=== PATIENT | female | born 1945 | race Caucasian/White ===

== ENCOUNTER 2017-04-01 05:29 | Inpatient (IN) | payer OTHER ==
[2017-03-15 13:22] VITALS: BMI 29.0
--- NOTE | 2017-03-15 14:22 | PAT Medication Instructions ---
Service Date Mar 15, 2017. Current Home Medication List Albuterol Sulf (Ventolin), 2 PUFF PO DAILY PRN for shortness of breath Aspirin (Aspirin Ec), 81 MG PO QAM Biotin (Biotin), 1 TAB PO BID Carvedilol (Coreg), 3.125 MG PO BID Cetirizine (Zyrtec), 10 MG PO QPM Cholecalciferol (Vitamin D3), 1 TAB PO QAM Coenzyme Q10 (Ubidecarenone) (Co Q10), 2 CAP PO QAM Fish Oil ([place]-3), 1 CAP PO QAM Fluticasone Prop/Salmeterol (Advair Diskus 100/50 60 Dose), 2 PUFF INH BID Hydrochlorothiazide (Hctz), 12.5 MG PO QAM Ibuprofen Tab (Advil), 200 MG PO DAILY PRN for headache Losartan Potassium (Cozaar), 25 MG PO QAM Magnesium Oxide (Mag-Ox), 400 MG PO QPM Sennosides-Docusate Sodium (Stool Softener), 1 TAB PO BID Trazodone Hcl (Trazodone), 50 MG PO QPM [probiotic advantage], 1 TAB PO QAM Medication Instructions For Your Scheduled Surgery - Hold the following medications 2 weeks prior to surgery: Coenzyme Q10 (Ubidecarenone) (Co Q10), 2 CAP PO QAM Fish Oil ([place]-3), 1 CAP PO QAM Biotin (Biotin), 1 TAB PO BID - Hold the following medications the morning of surgery: Losartan Potassium (Cozaar), 25 MG PO QAM Hydrochlorothiazide (Hctz), 12.5 MG PO QAM Cholecalciferol (Vitamin D3), 1 TAB PO QAM [probiotic advantage], 1 TAB PO QAM Ibuprofen Tab (Advil), 200 MG PO DAILY PRN for headache (otherwise okay to continue per surgeon) Sennosides-Docusate Sodium (Stool Softener), 1 TAB PO BID - Take the following medications the morning of surgery with a sip of water OTHERWISE NOTHING TO EAT OR DRINK AFTER MIDNIGHT: Aspirin (Aspirin Ec), 81 MG PO QAM (okay to continue per surgeon) Albuterol Sulf (Ventolin), 2 PUFF PO DAILY PRN for shortness of breath (use if needed; BRING TO HOSPITAL) Carvedilol (Coreg), 3.125 MG PO BID Fluticasone Prop/Salmeterol (Advair Diskus 100/50 60 Dose), 2 PUFF INH BID - Take the following medications as scheduled the night before surgery: Albuterol Sulf (Ventolin), 2 PUFF PO DAILY PRN for shortness of breath Ibuprofen Tab (Advil), 200 MG PO DAILY PRN for headache Trazodone Hcl (Trazodone), 50 MG PO QPM Magnesium Oxide (Mag-Ox), 400 MG PO QPM Cetirizine (Zyrtec), 10 MG PO QPM Sennosides-Docusate Sodium (Stool Softener), 1 TAB PO BID Carvedilol (Coreg), 3.125 MG PO BID Fluticasone Prop/Salmeterol (Advair Diskus 100/50 60 Dose), 2 PUFF INH BID If you have any questions please call us at [phone] or [phone] or [phone]
[2017-03-15 15:09] LABS: URINE APPEARANCE CLEAR (CLEAR); URINE BILIRUBIN NEG (NEG); URINE COLOR YELLOW; URINE NITRITE NEG (NEG); URINE SPECIFIC GRAVITY 1.016 (1.000-1.030); UROBILINOGEN NEG (NEG)
[2017-03-15 15:10] LABS: MANUAL MICROSCOPIC REQUIRED? NO; REVIEW REQ? NO
[2017-03-15 15:29] LABS: BUN/CREATININE RATIO 20.3 (10-20); CALCIUM 8.8 mg/dl (8.5-10.1); CREATININE 1.3 mg/dl (0.60-1.20); POTASSIUM 4.1 mmol/L (3.5-5.1)
[2017-03-15 16:55] LABS: BASO % 0.6 %; BASO ABS # 0.05 K/uL (0-0.2); COMPLETE YES; EOS % 4.9 %; HEMATOCRIT 41.4 % (37-47); IG% 0.1 %; LYMPH % 27.9 %; LYMPH ABS # 2.16 K/uL (1.2-3.4); MEAN CELL VOLUME 92.4 fL (80-100); MEAN CORPUSCULAR HEMOGLOBIN 30.1 pg (25-34); MEAN CORPUSCULAR HGB CONC 32.6 g/dl (32-36); MEAN PLATELET VOLUME 9.8 fL (7.4-10.4); MONO % 8.9 %; NEUT % 57.6 %; PLATELET COUNT 294 K/uL (130-400); RED BLOOD COUNT 4.48 M/uL (4.2-5.4); WHITE BLOOD COUNT 7.75 K/uL (4.8-10.8)
[2017-04-01] VITALS (11 sets, daily range): BP systolic 111–168; BP diastolic 52–89; PULSE 52–70; TEMP 34.6–36.9; O2SAT 59–99; Ht 167.6 cm; Wt 81.4 kg
[~2017-04-01] VITALS: Ht 167.6 cm; Wt 81.4 kg
[~2017-04-01 05:29] MED LIST: ADVIN10/60 INH; ALBU2SYP9 PO; ASPI81TA28 PO; BIOT1CAP3 PO; CARV3.122 PO; CETI10TA84 PO; CHOL1000 PO; COEN1CAP28 PO; HYDR12.56 PO; IBUP-103 PO; LOSA1TAB PO; MAGN400T6 PO; OMEG10007 PO; PROBIOTIC ADVANTAGE PO; SENNTAB23 PO; TRAZ50TA35 PO
[2017-04-01] MEDS ORDERED: PREGABALIN 75 MG CAP PO SCH (06:00)
[2017-04-01] MEDS ORDERED: LACTATED RINGER'S 1000ML 1,000 ML IV SCH (06:00)
[2017-04-01] MEDS ORDERED: CEFAZOLIN 2000 MG/60 ML D5W IV SCH (06:00)
[2017-04-01] MEDS ORDERED: MIDAZOLAM HCL 1 MG/ML 2ML VIAL ONE (06:37)
[2017-04-01] MEDS ORDERED: FENTANYL CITRATE INJ 50 MCG/1 ML 2 ML VIAL ONE ×2 (06:37→07:56)
[2017-04-01] MEDS ORDERED: THROMBIN FOR SOLN 20000 UNIT KIT ONE ×2 (06:52→07:00)
[2017-04-01] MEDS ORDERED: THROMBIN 5000 UNITS KIT ONE ×2 (06:52→07:00)
[2017-04-01] MEDS ORDERED: HEPARIN SOD (PORCINE) 1000 UNIT/ML 10 ML VIAL ONE ×2 (06:53→07:51)
[2017-04-01] MEDS ORDERED: BUPIVACAINE/EPINEPHRINE 0.25% 1:200,000 30 ML VIAL ONE (06:53)
[2017-04-01] MEDS ORDERED: BACITRACIN 50000 UNIT VIAL ONE (06:53)
--- NOTE | 2017-04-01 07:24 | History & Physical Bridge Note ---
H&P Re-Evaluation Bridge Note: I have examined the patient, reviewed the History & Physical and in the interval since the performance of the History & Physical I have noted the following changes of clinical significance: medically cleared at moderate risk. No changes noted
[2017-04-01] MEDS ORDERED: HYDROmorphone INJ 2 MG/ML SYR/VIAL ONE ×2 (07:56→09:37)
[2017-04-01] MEDS ORDERED: ATROPINE SULFATE 0.1 MG/ML 5ML SYR IV PRN (08:15)
[2017-04-01] MEDS ORDERED: ONDANSETRON INJ 2 MG/ML 2 ML VIAL IV PRN ×2 (08:15→09:45)
[2017-04-01] MEDS ORDERED: LABETALOL HCL IV 5 MG/ML 20ML IV PRN (08:15)
[2017-04-01] MEDS ORDERED: HydrALAZINE HCL 20 MG/ML VIAL ONE (09:21)
[2017-04-01] MEDS ORDERED: EpHEDrine SULFATE 50MG/5ML SYR ONE (09:21)
[2017-04-01] MEDS ORDERED: NEOSTIGMINE METHYLSULFATE 1 MG/ML 10ML VIAL ONE (09:21)
[2017-04-01] MEDS ORDERED: PROPOFOL IV EMULSION 10 MG/ML 20 ML VIAL IV ONE (09:21)
[2017-04-01] MEDS ORDERED: DEXAMETHASONE SOD INJ 4 MG/ML VIAL ONE (09:21)
[2017-04-01] MEDS ORDERED: GLYCOPYRROLATE INJ 0.2 MG/ML VIAL ONE (09:21)
[2017-04-01] MEDS ORDERED: ROCURONIUM BROMIDE 10 MG/ML 5 ML VIAL ONE (09:21)
[2017-04-01] MEDS ORDERED: ONDANSETRON INJ 2 MG/ML 2 ML VIAL ONE (09:21)
[2017-04-01] MEDS ORDERED: LIDOCAINE HCL 2% 2 ML VIAL (20MG/ML) ONE (09:21)
[2017-04-01] MEDS: SODIUM CHLORIDE 0.9% 1000ML 1,000 ML IV SCH ×3 (09:31→12:06)
[2017-04-01] MEDS ORDERED: FLOSEAL HEMOSTATIC MATRIX 10ML TOP ONE (09:37)
--- NOTE | 2017-04-01 09:37 | [facility] Post Operative Brief Note ---
Immediate Operative Summary Operative Date Apr 01, 2017. Pre-Operative Diagnosis Lumbar Stenosis Post-Operative Diagnosis Lumbar Stenosis Procedure(s) Performed L2-L4 Decompression Fusion; Use of Arteriorcyte; Application of Bone Morphogenic Protein Surgeon Dr. Lobato Stained Glass Artist Surgeon(s) Bernard Mirza PA-C Estimated Blood Loss 150 ml Findings dict Specimens NONE PER SURGEON
[2017-04-01] MEDS ORDERED: HYDROmorphone HCL 0.5MG/ML 50 ML CASSETTE ONE (09:43)
--- NOTE | 2017-04-01 09:44 | [facility] Operative Report ---
Operative Report Operative Date Apr 01, 2017. Pre-Operative Diagnosis Lumbar Stenosis Post-Operative Diagnosis Lumbar Stenosis Procedure(s) Performed 1. L2 and L3 laminectomies 2. L2-4 PSF 3. exploration fusion mass L4-5 bilateral 4. Pedicle screw instrumentaion bilateral L2 and soni application L2-4 bilateral with K2M pedicle screws bilateral 5. Left Iliac crest bone marrow aspiration Surgeon Dr. Lobato Firer Electric Locomotive Surgeon(s) Bernard Mirza PA-C Estimated Blood Loss 150 ml Findings see bwelow Specimens NONE PER SURGEON Anesthesia GETA Complication(s) None Description of Procedure After identification of the patient and the operative level they were brought to the OR where they underwent induction of general anesthesia. They were positioned prone on a Won spine table with all bony prominence well-padded. Care was taken to avoid pressure on the periorbital area. The lumbosacral area was sterilely prepped and draped in the usual fashion. Antibiotics were administered, a time-out was performed, level was confirmed, and skin incision was with localized lateral fluoroscopy and a spinal needle. The skin was infiltrated with half percent Marcaine with epinephrine. I then made skin incision from the spinous process of L2-5. The dorsal fascia was incised and posterior exposure was accomplished with dissection out to the tips of the transverse processes from L2-4 bilaterally. I then packed the gutters with thrombin-soaked sponges and used fluoroscopy to confirm the operative levels with markers at the operative levels. After identification of the appropriate level I placed Gelpi retractors and proceeded to perform midline decompression. Laminectomies of L2&3 were performed in the midline with takedown of the intervening ligamentum flavum. I then used an osteotome to remove the medial facets at L2-3 and L3-4. Facet hypertrophy and degenerative changes were noted at the operative levels. I then completed decompression with Kerrison rongeurs and palpated the nerve roots were adequately decompressed at the operative levels from L2-4 bilaterally. I palpated all nerve roots were decompressed adequately. I then obtained hemostasis of epidural bleeding with bipolar cautery and Surgiflo. I then proceeded to place pedicle screws bilaterally at L2 &3 with bony anatomy confirmed to be intact with the ball-tipped feeler. I confirmed screw length, trajectory, and position with fluoroscopy. Following this I turned my attention to the L3-4 disc space which was severely collapsed and precluded cage placement however the spondylolisthesis reduced on the table. Bone graft consisted of morselized local bone from laminectomy bone as well as bone graft early years teacher saturated with stem cell concentrate. I obtained stem cell concentrate using a stem cell concentration system after aspiration of bone marrow from the left iliac crest via a separate stab incisions with a Jamshidi needle. I then applied this to bone graft early years teacher. I then lowered the Adrian frame to restore lordosis. I explored the fusion and hardware bilaterally at L4-5 and confirmed a solid fusion. I then applied connectors between the screws at L4-5 and applied rods and end caps bilaterally with final tightening of all caps. To facilitate soni introduction I had to remove the L3 screws. I applied two cross links. I irrigated with bacitracin solution. I then decorticated the transverse processes bilaterally at the operative levels from L2-4 as well as facet joints with a high-speed bur. I then packed the lateral gutters and facets with the bone graft mixture consisting of: infuse BMP and a collagen sponge, tricalcium phosphate logs, stem cell concentrate, morcellized local bone, and bone graft early years teacher. I then confirmed hemostasis and closed in a layered fashion over a MISTY drain. All sponge and needle counts were correct in the case. My PA-C was critical for performance of procedure and participated in draping, prepping, retraction, and wound closure. I attest to the content of the Intraoperative Record and any orders documented therein. Any exceptions are noted below.
[2017-04-01] MEDS ORDERED: LORAZEPAM 0.5 MG TAB PO PRN (09:45)
[2017-04-01] MEDS ORDERED: ACETAMINOPHEN 500 MG TAB PO PRN (09:45)
[2017-04-01] MEDS ORDERED: PROMETHAZINE HCL INJ 12.5 MG in SODIUM CHLORIDE 0.9% 50ML 50 ML IV PRN (09:45)
[2017-04-01] MEDS ORDERED: ALUMINUM/MAGNESIUM SUSP 30 ML UDC PO PRN (09:45)
[2017-04-01] MEDS ORDERED: LORAZEPAM INJ 0.5 MG in SYRINGE 0 ML IV PRN (09:45)
[2017-04-01] MEDS ORDERED: BISACODYL 10 MG SUPP PR PRN (09:45)
[2017-04-01] MEDS ORDERED: ACETAMINOPHEN IV 100 ML IV PRN (09:45)
[2017-04-01] MEDS ORDERED: SOD PHOSPHATE/SOD BIPHOSPHATE ENEMA 132 ML BTL PR PRN (09:45)
[2017-04-01] MEDS ORDERED: NALOXONE HCL 0.4 MG/1 ML VIAL/CARP IV PRN ×2 (09:45)
[2017-04-01] MEDS ORDERED: hydrOXYzine HCL 25 MG TAB PO PRN (09:45)
[2017-04-01] MEDS ORDERED: DC PCA PRN (09:45)
[2017-04-01] MEDS ORDERED: FAMOTIDINE 20 MG TAB PO PRN (09:45)
[2017-04-01] MEDS ORDERED: METOCLOPRAMIDE HCL INJ 5 MG/ML 2 ML VIAL IV PRN (09:45)
[2017-04-01] MEDS ORDERED: MAGNESIUM HYDROXIDE SUSP 30 ML UDC PO PRN (09:45)
[2017-04-01] MEDS: HYDROmorphone INJ 2 MG/ML SYR/VIAL IV PRN ×4 (09:47→10:02)
--- NOTE | 2017-04-01 10:33 | Anesthesiology Progress Note ---
Anesthesia Post Op Note Date & Time Apr 01, 2017 at 10:33 Vital Signs Vital Signs Past 12 Hours Date Time Temp Pulse Resp B/P (MAP) Pulse Ox O2 Delivery O2 Flow Rate FiO2 04/01/17 10:30 66 16 144/65 93 Nasal Cannula 4 04/01/17 10:20 44 16 123/52 97 Nasal Cannula 4 04/01/17 10:10 47 16 122/56 98 Nasal Cannula 4 04/01/17 10:00 41 16 118/50 97 Oxymask 8 04/01/17 09:50 54 16 145/66 98 Oxymask 8 04/01/17 09:40 36.1 66 16 153/69 98 Oxymask 8 04/01/17 06:39 36.9 59 20 168/89 98 Room Air 04/01/17 05:58 36.9 59 20 168/89 (115) 59 Room Air Notes Mental Status: alert / awake / arousable, participated in evaluation Pt Amnestic to Procedure: Yes Nausea / Vomiting: adequately controlled Pain: adequately controlled Airway Patency, RR, SpO2: stable & adequate BP & HR: stable & adequate Hydration State: stable & adequate Anesthetic Complications: no major complications apparent
[2017-04-01] MEDS ORDERED: GLYCOPYRROLATE INJ 0.2 MG/ML VIAL IV ONE (10:45)
--- NOTE | 2017-04-01 11:45 | DIAGNOSTIC IMAGING REPORT ---
Lumbar spine LUMBAR SPINE 2 OR 3 VIEW CLINICAL HISTORY: L4-L5 REMOVAL / L2-L4 DECOMP/FUSION TECHNIQUE: Image intensifier COMPARISON STUDY: None FINDINGS: Image intensifier utilized for lumbar spine fusion/ReVision procedure IMPRESSION: Image intensifier utilized for lumbar spine fusion/ReVision procedure Electronically signed by: Pito Corbin M.D. 04/01/2017 11:44 AM Dictated Date/Time: 04/01/2017 11:43 AM
[2017-04-01] MEDS ORDERED: ALBUAER INH (12:13)
[2017-04-01] MEDS ORDERED: ALBUTEROL HFA 8 GM INHALER INH PRN (12:15)
[2017-04-01] MEDS ORDERED: RXC5 PO (13:28)
--- NOTE | 2017-04-01 13:29 | Discharge Instructions ---
Discharge Instructions Date of Service Apr 01, 2017. Admission Reason for Admission: Lumbar Spinal Stenosis Discharge Discharge Diagnosis / Problem: same Discharge Goals Goal(s): Decrease discomfort Activity Recommendations Activity Limitations: per Instructions/Follow-up section . Instructions / Follow-Up Instructions / Follow-Up ACTIVITY RECOMMENDATIONS: SELF CARE INSTRUCTIONS AFTER THORACIC/LUMBAR FUSIONS 1. You may walk to your tolerance. It is good exercise for your legs and back. Expect some back and intermittent leg aches and pains. 2. You may perform "counter-top" level activities (make a sandwich, linsey with a project, etc.). 3. No bending or lifting of more than 10 pounds or back twisting of any nature (roll like a log when turning in bed). 4. You may ride in a car for 20-30 minutes at a time. No driving until after your first visit with your doctor. 5. Frequent changes of position and restricting sitting to 30 minutes at a time will help limit the amount of back spasms and stiffness you may experience. 6. You may discontinue the use of ambulatory aids (cane, crutches, etc.) once your strength and confidence allow. 7. You may infantry assaultman the shower and let water strike your incision when you arrive home at least once daily. Do not take a tub bath, sit in a hot tub or go into a swimming pool until after your first recheck in the office. SPECIAL CARE INSTRUCTIONS: VERY IMPORTANT TO READ AND REVIEW 2. You may keep the wound open to air as much as possible to promote healing after post-op day number 5 unless told otherwise by your doctor. 3. If you think the wound looks like it is becoming infected (redness or worsening drainage) and/or you are experiencing fever, chill or worsening back pain and muscle spasms, contact the office so that we may evaluate you as soon as possible. B. Complications are uncommon, but please contact us if you have any signs or symptoms of: 1. wound infection (fever higher than 102.5 degrees F, redness, separation of wound, drainage, or increasing pain from the incision) 2. blood clots in legs (pain, swelling, redness and warmth in legs) 3. urinary tract infection (fever higher than 102.5 degrees F, burning upon urination or increased frequency of urination) 4. nerve problems (inability to walk on your toes or heels, numbness, loss of bowel or bladder control) 5. any other symptoms that concern you C. Please call the office at if you have any concerns or questions about your operation or recovery. D. No smoking! Smoking drastically decreases the chance of a solid fusion. MANAGING PAIN AFTER SPINAL SURGERY 1. Narcotic medication is intended for short-term use and will be provided for surgical pain. Surgical pain usually lasts for a period of 4-6 weeks. Narcotic medication includes Percocet, Vicodin, Darvocet, Tylenol #3 or Lortab. 2. Longer-term pain is more appropriately treated with non-narcotic medication such as Tylenol ES. 3. Muscle spasm is not appropriately treated with narcotics. Muscle relaxers such as Soma, Flexeril or Skelaxin can be used along with Tylenol ES. 4. Remember that we all live with some "aches and pains". This is not unusual or uncommon after an injury or as we get older. a. Back pain is expected and may include muscle spasms for 4 to 6 weeks after surgery. The pain should gradually improve. If the pain worsens for no apparent reason, please contact the office. b. Intermittent leg pain may also be experienced and should not be concerned about unless it worsens for no apparent reason. If so, please contact the office. 5. We will provide appropriate medication within the normal guidelines of their prescribed use. We will also be very cautious and aware of potential abuse and extended duration of patients' medication needs. a. Pain medications are for your comfort and to assist with sleep and rest so that the tissue can heal. They are not provided in order to return to normal activity and should not be used through the day. To do so or worsening pain at night can result from ongoing tissue damage and development of tolerance to the prescribed medicine. 6. Please allow 2-3 days to process refills. Prescriptions will not be mailed but must be picked up at the office. FOLLOW UP VISIT: Keep your scheduled follow-up appointment. Any questions, please call the office at . Current Hospital Diet Patient's current hospital diet: Regular Diet Discharge Diet Recommended Diet: Regular Diet Procedures Procedures Performed: 1. L2 and L3 laminectomies 2. L2-4 PSF 3. exploration fusion mass L4-5 bilateral 4. Pedicle screw instrumentaion bilateral L2 and soni application L2-4 bilateral with K2M pedicle screws bilateral 5. Left Iliac crest bone marrow aspiration Pending Studies Studies pending at discharge: no Medical Emergencies . Who to Call and When: Medical Emergencies: If at any time you feel your situation is an emergency, please call 911 immediately. . Non-Emergent Contact Non-Emergency issues call your: Surgeon . "Provider Documentation" section prepared by Tano Lobato. . VTE Core Measure Inpt VTE Proph given/why not?: Ada Rodriguez SCD's [place] Drug Monitoring Program Search Results: patient reviewed within database, no issues identified ( reviewed by PAc)
[2017-04-01] MEDS: HYDROmorphone HCL 0.5MG/ML 50 ML CASSETTE IV PRN ×2 (14:57→23:01)
[2017-04-01] MEDS: CEFAZOLIN IV 2,000 MG in DEXTROSE 5% 50ML 50 ML IV SCH (17:48)
[2017-04-01] MEDS: DEXAMETHASONE INJ 6 MG in SYRINGE 0 ML IV SCH (17:49)
[2017-04-01] MEDS: DOCUSATE SODIUM/SENNA 50/8.6MG TAB PO SCH ×2 (21:00→21:08)
[2017-04-01] MEDS: CARVEDILOL 3.125 MG TAB PO SCH (21:00)
[2017-04-01] MEDS: FLUTICASONE/SALMETEROL 100/50 (ADVAIR) 14 PUFF/1 INHALER INH SCH (21:05)
[2017-04-01] MEDS: MAGNESIUM OXIDE 400 MG TAB PO SCH (21:07)
[2017-04-02] VITALS (8 sets, daily range): BP systolic 113–149; BP diastolic 56–75; PULSE 53–61; TEMP 36.4–36.9; O2SAT 96–99
[2017-04-02] MEDS: SODIUM CHLORIDE 0.9% 1000ML 1,000 ML IV SCH (02:18)
[2017-04-02] MEDS: DEXAMETHASONE INJ 6 MG in SYRINGE 0 ML IV SCH ×2 (02:18→10:01)
[2017-04-02] MEDS: CEFAZOLIN IV 2,000 MG in DEXTROSE 5% 50ML 50 ML IV SCH (02:18)
[2017-04-02] MEDS ORDERED: HYDROmorphone INJ 1 MG/ML SYR IV PRN (06:00)
[2017-04-02] MEDS ORDERED: HYDROmorphone INJ 0.5 MG/0.5 ML SYR IV PRN (06:00)
[2017-04-02 06:59] LABS: BASO % 0.1 %; BASO ABS # 0.01 K/uL (0-0.2); COMPLETE YES; HEMATOCRIT 35.6 % (37-47); IG% 0.3 %; LYMPH ABS # 0.78 K/uL (1.2-3.4); MEAN CELL VOLUME 92.2 fL (80-100); MEAN CORPUSCULAR HEMOGLOBIN 30.3 pg (25-34); MEAN CORPUSCULAR HGB CONC 32.9 g/dl (32-36); MEAN PLATELET VOLUME 9.9 fL (7.4-10.4); MONO % 2.2 %; NEUT % 92.4 %; PLATELET COUNT 215 K/uL (130-400); RED BLOOD COUNT 3.86 M/uL (4.2-5.4); WHITE BLOOD COUNT 15.74 K/uL (4.8-10.8)
[2017-04-02] MEDS ORDERED: NURSING DECISION MEDICATION ORDER SCH (07:00)
[2017-04-02] MEDS: OXYCODONE HCL IR 5 MG TAB (IMMEDIATE RELEASE) PO PRN ×3 (07:27→21:13)
[2017-04-02 07:28] LABS: CALCIUM 8.5 mg/dl (8.5-10.1); CREATININE 1.4 mg/dl (0.60-1.20); POTASSIUM 4.7 mmol/L (3.5-5.1)
--- NOTE | 2017-04-02 07:47 | Anesthesiology Progress Note ---
Anesthesia Post Op Note Date & Time Apr 02, 2017 at 07:47 Vital Signs Pain Intensity: 7.0 Vital Signs Past 12 Hours Date Time Temp Pulse Resp B/P (MAP) Pulse Ox O2 Delivery O2 Flow Rate FiO2 04/02/17 03:45 36.6 54 14 113/65 (81) 99 Nasal Cannula 2.0 04/01/17 23:55 Nasal Cannula 2.0 04/01/17 23:11 36.5 58 18 146/72 (96) 99 Room Air 04/01/17 20:06 95 Room Air Notes Mental Status: alert / awake / arousable, participated in evaluation Pt Amnestic to Procedure: Yes Nausea / Vomiting: adequately controlled Pain: adequately controlled Airway Patency, RR, SpO2: stable & adequate BP & HR: stable & adequate Hydration State: stable & adequate Anesthetic Complications: no major complications apparent
[2017-04-02] MEDS: FLUTICASONE/SALMETEROL 100/50 (ADVAIR) 14 PUFF/1 INHALER INH SCH ×2 (08:32→21:01)
[2017-04-02] MEDS: HYDROCHLOROTHIAZIDE 25 MG TAB PO SCH (08:33)
[2017-04-02] MEDS: DOCUSATE SODIUM/SENNA 50/8.6MG TAB PO SCH ×3 (08:33→21:02)
[2017-04-02] MEDS: ASPIRIN 81 MG ECTAB PO SCH (08:33)
[2017-04-02] MEDS: CARVEDILOL 3.125 MG TAB PO SCH ×2 (08:33→21:02)
[2017-04-02] MEDS: LOSARTAN POTASSIUM 25 MG TAB PO SCH (08:33)
--- NOTE | 2017-04-02 08:57 | Discharge Summary ---
Orthopedic Discharge Summary Admission Date/Reason Apr 01, 2017 at 07:15 Lumbar Spinal Stenosis. Discharge Date/Disposition Apr 03, 2017 Home Diagnosis Principal Diagnosis: same Medication Reconciliation New Medications: Oxycodone HCl (Oxycodone HCl) 5 Mg Tab 5-10 MG PO Q4H PRN for Moderate - severe pain, #90 TAB Continued Medications: Albuterol Sulfate (Proventil Hfa) 108 Mcg/Act Aer 2 PUFF INH DAILY PRN for Shortness of Breath Aspirin (Aspirin Ec) 81 Mg Tab 81 MG PO QAM Biotin (Biotin) 5,000 Mcg Cap 1 TAB PO BID Carvedilol (Coreg) 3.125 Mg Tab 3.125 MG PO BID, TAB Cetirizine (Zyrtec) 10 Mg Tab 10 MG PO QPM, TAB Cholecalciferol (Vitamin D3) 1,000 Unit Tab 1 TAB PO QAM for 90 Days, #90 TAB 3 Refills Coenzyme Q10 (Ubidecarenone) (Co Q10) 50 Mg Cap 2 CAP PO QAM, CAP Fish Oil ([place]-3) 1 Ea Cap 1 CAP PO QAM, CAP Fluticasone Prop/Salmeterol (Advair Diskus 100/50 60 Dose) 1 Ea Aerp 2 PUFF INH BID, INHALER Hydrochlorothiazide (Hctz) 12.5 Mg Cap 12.5 MG PO QAM, TAB Ibuprofen Tab (Advil) 200 Mg Tab 200 MG PO DAILY PRN for headache, TAB Losartan Potassium (Cozaar) 25 Mg Tab 25 MG PO QAM, TAB Magnesium Oxide (Mag-Ox) 400 Mg Tab 400 MG PO QPM, TAB Sennosides-Docusate Sodium (Stool Softener) 1 Tab Tab 1 TAB PO BID Trazodone Hcl (Trazodone) 50 Mg Tab 50 MG PO QPM, TAB [probiotic advantage] () 1 TAB PO QAM Admission Physical Exam As per Admitting History & Physical. Hospital Course The patient was admitted for elective lumbar fusion. They tolerated procedure well and were stable on the floor. They progressed with PT, had stable labs, HVC output decreased, pain was controlled, and bowel function returned. They were discharged in stable condition Discharge Instructions Please refer to the electronic Patient Visit Report (Discharge Instructions) for additional information.
--- NOTE | 2017-04-02 08:59 | Orthopedic Progress Note ---
Orthopedic Progress Note Date of Service Apr 02, 2017. Subjective Post OP Day: 1 Reports: feeling well, pain controlled w PO medications, Denies: complaints, chest pain, SOB, nausea / vomiting, light headedness, calf pain, using AIRCRAFT LOADMASTER SUPERINTENDENT Objective calves soft nontender, N/V intact, dressing C/D/I, A&O x3, hemovac drainage Date Time Temp Pulse Resp B/P (MAP) Pulse Ox O2 Delivery O2 Flow Rate FiO2 04/02/17 08:43 98 Room Air 04/02/17 08:32 58 124/71 (88) 04/02/17 08:07 36.7 53 20 120/70 (87) 98 Room Air 04/02/17 07:25 Room Air 04/02/17 03:45 36.6 54 14 113/65 (81) 99 Nasal Cannula 2.0 04/01/17 23:55 Nasal Cannula 2.0 04/01/17 23:11 36.5 58 18 146/72 (96) 99 Room Air 04/01/17 20:06 95 Room Air 04/01/17 19:29 36.4 52 16 111/67 (82) 97 Nasal Cannula 2.0 04/01/17 16:13 34.8 53 16 151/71 (97) 98 Nasal Cannula 2.0 04/01/17 15:25 Nasal Cannula 2.0 04/01/17 14:00 36.4 70 16 141/74 (96) 97 Nasal Cannula 2.0 04/01/17 13:00 52 12 130/62 (84) 98 Nasal Cannula 04/01/17 11:55 34.6 60 14 145/64 (91) 99 Nasal Cannula 04/01/17 11:30 54 18 145/64 (91) 99 Nasal Cannula 2.0 04/01/17 11:10 99 Nasal Cannula 4.0 04/01/17 11:10 Nasal Cannula 2.0 04/01/17 11:00 36.4 54 18 128/52 (77) 98 Nasal Cannula 4.0 04/01/17 10:40 36.0 66 16 123/65 96 Nasal Cannula 4 04/01/17 10:30 66 16 144/65 93 Nasal Cannula 4 04/01/17 10:20 44 16 123/52 97 Nasal Cannula 4 04/01/17 10:10 47 16 122/56 98 Nasal Cannula 4 04/01/17 10:00 41 16 118/50 97 Oxymask 8 04/01/17 09:50 54 16 145/66 98 Oxymask 8 04/01/17 09:40 36.1 66 16 153/69 98 Oxymask 8 Laboratory Results 24 Hours: Test 04/02/17 06:10 White Blood Count 15.74 K/uL Red Blood Count 3.86 M/uL Hemoglobin 11.7 g/dL Hematocrit 35.6 % Mean Corpuscular Volume 92.2 fL Mean Corpuscular Hemoglobin 30.3 pg Mean Corpuscular Hemoglobin Concent 32.9 g/dl Platelet Count 215 K/uL Mean Platelet Volume 9.9 fL Neutrophils (%) (Auto) 92.4 % Lymphocytes (%) (Auto) 5.0 % Monocytes (%) (Auto) 2.2 % Eosinophils (%) (Auto) 0.0 % Basophils (%) (Auto) 0.1 % Neutrophils # (Auto) 14.56 K/uL Lymphocytes # (Auto) 0.78 K/uL Monocytes # (Auto) 0.35 K/uL Eosinophils # (Auto) 0.00 K/uL Basophils # (Auto) 0.01 K/uL Assessment & Plan Assessment: stable, pain controlled Plan: PT, scds, d/c wednesday?
[2017-04-02] MEDS ORDERED: COUGH DROP (SUGAR FREE) LOZ 24 LOZ/1 BOX ONE (19:49)
[2017-04-02] MEDS: MAGNESIUM OXIDE 400 MG TAB PO SCH (21:03)
[2017-04-03] MEDS: POLYETHYLENE (MIRALAX) 17 GM PACK PO SCH ×2 (05:48→12:35)
[2017-04-03 06:07] VITALS: BP 143/82; PULSE 54; TEMP 36.7; O2SAT 98
[2017-04-03] MEDS: FLUTICASONE/SALMETEROL 100/50 (ADVAIR) 14 PUFF/1 INHALER INH SCH (07:30)
[2017-04-03] MEDS: ASPIRIN 81 MG ECTAB PO SCH (07:30)
[2017-04-03] MEDS: HYDROCHLOROTHIAZIDE 25 MG TAB PO SCH (07:31)
[2017-04-03] MEDS: DOCUSATE SODIUM/SENNA 50/8.6MG TAB PO SCH (07:31)
[2017-04-03] MEDS: LOSARTAN POTASSIUM 25 MG TAB PO SCH (07:31)
[2017-04-03] MEDS: CARVEDILOL 3.125 MG TAB PO SCH (07:32)
[2017-04-03] MEDS: OXYCODONE HCL IR 5 MG TAB (IMMEDIATE RELEASE) PO PRN ×2 (07:39→12:36)
[2017-04-03 12:12] VITALS: BP 143/82; PULSE 54; TEMP 36.7; O2SAT 98
== END 2017-04-03 13:36 | disposition home or self-care (01) | DRG 460 ==
LOC: C.ACU 05:29 → C.3E 07:15 → ENRESERV 10:25
PROVIDERS: ADMIT Orthopaedic Surgery Orthopaedic Surgery of the Spine; ATTEND Orthopaedic Surgery Orthopaedic Surgery of the Spine
PROC: 07DR3ZZ Extraction of Iliac Bone Marrow, Percutaneous Approach (ICD-10-PCS; principal; 2017-04-01 07:30)
PROC: 0SG00A1 (ICD-10-PCS; principal; 2017-04-01 07:30)
DX: M48.06 Spinal stenosis, lumbar region (principal); Z87.891 Personal history of nicotine dependence